=== PATIENT | male | born 1955 | race Caucasian/White ===

== ENCOUNTER → 2023-07-17 | Outpatient (CLI) | payer SELFPAY | END | disposition home or self-care (01) | LOC: LAB 15:04 | PROVIDERS: ATTEND Internal Medicine | DX: K90.9 Intestinal malabsorption, unspecified (principal); R63.4 Abnormal weight loss ==

== ENCOUNTER → 2023-07-18 | Outpatient (CLI) | payer SELFPAY | END | disposition home or self-care (01) | LOC: CT 00:06 | PROVIDERS: ATTEND Internal Medicine | DX: C15.9 Malignant neoplasm of esophagus, unspecified (principal); K80.20 Calculus of gallbladder without cholecystitis without obstruction; N40.0 Benign prostatic hyperplasia without lower urinary tract symptoms; M47.816 Spondylosis without myelopathy or radiculopathy, lumbar region; M47.814 Spondylosis without myelopathy or radiculopathy, thoracic region; M16.0 Bilateral primary osteoarthritis of hip; M43.8X6 Other specified deforming dorsopathies, lumbar region; I70.0 Atherosclerosis of aorta ==

== ENCOUNTER 2024-02-11 11:13 | Emergency (ER) | payer OTHER ==
[~2024-02-11] VITALS: Ht 172.7 cm; Wt 50.8 kg
[2024-02-11 11:54] LABS: HEMATOCRIT 21.7 % (42.0-52.0); MANUAL DIFF REFLEX YES; MEAN CELL VOLUME 103.8 fl (80.0-94.0); MEAN CORPUSCULAR HGB 32.5 pg (27.0-31.0); MEAN CORPUSCULAR HGB CONC 31.3 g/dl (33.0-37.0); MEAN PLATELET VOLUME 9.4 fl (9.6-12.3); PLATELET COUNT AUTOMATED 94 10*3/uL (130-400); RED BLOOD COUNT 2.09 10*6/uL (4.50-5.90); RED CELL DISTRI WIDTH 15.5 % (0-14.5)
[2024-02-11 12:06] LABS: BUN 18 mg/dl (9-23); CHLORIDE 105 mmol/L (98-107); POTASSIUM 4.2 mmol/L (3.4-5.1)
[2024-02-11 12:13] LABS: OVALOCYTES FEW; PLATELET SUFFICIENCY LOW (NORMAL); POLYCHROMASIA SLIGHT; TARGET CELLS FEW; TOTAL CELLS COUNTED 100 #CELLS
[2024-02-11 12:14] LABS: ROULEAUX SLIGHT
[2024-02-11 13:10] VITALS: BP 116/69
[2024-02-11] MEDS ORDERED: SODIUM CHLORIDE 0.9% 500 ML IV ONE (13:13)
[2024-02-11 13:19] VITALS: BP 113/74
[2024-02-11 13:51] VITALS: BP 118/77
[2024-02-11 14:10] VITALS: BP 123/76
[2024-02-11 15:33] LABS: HEMATOCRIT 25.2 % (42.0-52.0); MEAN CELL VOLUME 101.2 fl (80.0-94.0); MEAN CORPUSCULAR HGB 30.9 pg (27.0-31.0); MEAN CORPUSCULAR HGB CONC 30.6 g/dl (33.0-37.0); MEAN PLATELET VOLUME 9.4 fl (9.6-12.3); PLATELET COUNT AUTOMATED 88 10*3/uL (130-400); RED BLOOD COUNT 2.49 10*6/uL (4.50-5.90); RED CELL DISTRI WIDTH 18.2 % (0-14.5); WHITE BLOOD COUNT 2.2 10*3/uL (4.8-10.8)
[2024-02-11 15:55] LABS: MANUAL DIFF REFLEX YES
[2024-02-11 16:10] LABS: BASOPHILS 1 % (0-1); PLATELET SUFFICIENCY LOW (NORMAL); TOTAL CELLS COUNTED 100 #CELLS
[2024-02-11 16:13] LABS: OVALOCYTES FEW; ROULEAUX SLIGHT; SCHISTOCYTES FEW
== END 2024-02-11 16:51 | disposition home or self-care (01) ==
LOC: ED 11:13
PROVIDERS: Internal Medicine
DX: D64.9 Anemia, unspecified (principal); E11.9 Type 2 diabetes mellitus without complications; Z91.040 Latex allergy status

== ENCOUNTER 2024-03-02 06:14 | Emergency (ER) | payer OTHER ==
[~2024-03-02] VITALS: Ht 172.7 cm
[2024-03-02] MEDS ORDERED: DIATRIZOATE MEG/DIATRIZO. SOD 120 ML BOT PO ONE (07:15)
[2024-03-02] MEDS ORDERED: DIATRIZOATE MEG/DIATRIZO. SOD 120 ML BOT ONE (07:33)
== END 2024-03-02 09:51 | disposition home or self-care (01) ==
LOC: ED 06:14
DX: K94.23 Gastrostomy malfunction (principal); Y84.8 Other medical procedures as the cause of abnormal reaction of the patient, or of later complication, without mention of misadventure at the time of the procedure; Y82.8 Other medical devices associated with adverse incidents